=== PATIENT | female | born 1980 | race African-American/Black ===

== ENCOUNTER 2016-10-20 16:34 | Emergency (ER) | payer MEDICARE, OTHER ==
[~2016-10-20] VITALS: Ht 175.3 cm; Wt 81.8 kg
[~2016-10-20 16:34] MED LIST: ACET-784 PO; DSS100 PO; FERR-72 PO; IBUP-2070 PO; PREN1TAB80 PO
[2016-10-20] MEDS ORDERED: HYDROCODONE/ACETAMINOPHEN 10-325 MG TABLET PO ONE (19:45)
[2016-10-20] MEDS ORDERED: IBUPROFEN 800 MG TABLET PO ONE (19:45)
[2016-10-20] MEDS ORDERED: MORPHINE SULFATE 4 MG/ML SYRINGE IVP ONE (20:00)
[2016-10-20] MEDS ORDERED: MetroNIDAZOLE 500 MG/NACL 100 ML IV ONE (20:00)
[2016-10-20] MEDS ORDERED: ONDANSETRON HCL 4 MG/2 ML VIAL IVP ONE (20:00)
[2016-10-20] MEDS ORDERED: KETOROLAC TROMETHAMINE 30 MG/ML VIAL IVP ONE (20:00)
[2016-10-20 20:57] VITALS: BP 127/75
== END 2016-10-20 21:01 | disposition home or self-care (01) ==
LOC: EMS 16:35
DX: K04.7 Periapical abscess without sinus (principal)
CPT/HCPCS: 96365; 96372; 96375; 99284; J0690; J1885; J2270; J2405; J3490

== ENCOUNTER 2017-01-30 11:29 | Emergency (ER) | payer MEDICARE, OTHER ==
[~2017-01-30] VITALS: Ht 175.3 cm; Wt 81.8 kg
[2017-01-30] MEDS ORDERED: ONDANSETRON HCL 4 MG/2 ML VIAL IVP ONE (12:45)
[2017-01-30] MEDS ORDERED: HYDROmorphone 2 MG/ML SYRINGE IVP ONE (12:45)
[2017-01-30] MEDS ORDERED: SODIUM CHLORIDE 0.9% 1,000 ML IV ONE (12:45)
[2017-01-30 12:58] LABS: BASOPHILS % (AUTO) 0.7 % (0.0-2.0); EOSINOPHILS % (AUTO) 1.9 % (1.0-6.0); HEMATOCRIT 31.7 % (36-46); HEMOGLOBIN 10.5 g/dL (12.0-16.0); LYMPHOCYTES # (AUTO) 1.9 K/uL (1.0-4.8); LYMPHOCYTES % (AUTO) 34.9 % (22.0-44.0); MEAN CORPUSCULAR HGB CONC 33.3 G/dL (31.0-37.0); MEAN CORPUSCULAR VOLUME 90 fL (80-100); MONOCYTES # (AUTO) 0.4 K/uL (0.1-1.0); NEUTROPHILS % (AUTO) 55.5 % (40.0-70.0); PLATELET COUNT (AUTO) 191 K/uL (150-450); RED BLOOD CELL COUNT(AUTO) 3.52 MIL/uL (4.00-5.20); RED CELL DISTRIBUTION WIDTH 13.4 % (11.5-14.5); WHITE BLOOD COUNT (AUTO) 5.4 K/uL (4.5-11.0)
[2017-01-30] MEDS ORDERED: CeFAZolin 1 GM/DEXTROSE 50 ML IV ONE (13:00)
[2017-01-30 13:28] LABS: ANION GAP 7 mmol/L (8-16); CALCIUM, TOTAL 8.5 mg/dL (8.8-10.5); CARBON DIOXIDE 30 mmol/L (22-29); CHLORIDE 107 mmol/L (98-107); CREATININE 0.72 mg/dL (0.60-1.30); GLOMERULAR FILTR. RATE CALC > 60 mL/min (>60); POTASSIUM 3.5 mmol/L (3.5-5.1); SODIUM SERUM 144 mmol/L (136-145); UREA NITROGEN, BLOOD 9 mg/dL (7-18)
[2017-01-30 14:42] VITALS: BP 111/69
== END 2017-01-30 14:47 | disposition home or self-care (01) ==
LOC: EMS 11:31
DX: R68.84 Jaw pain (principal); Z76.0 Encounter for issue of repeat prescription
CPT/HCPCS: 36415; 80048; 85025; 96365; 96375; 99284; J0690; J1170; J2405; J7030

== ENCOUNTER 2020-09-25 13:14 | Inpatient (IN) | payer MEDICARE, MEDICAID ==
[~2020-09-25] VITALS: Ht 175.3 cm; Wt 90.7 kg
[2020-09-25 14:30] LABS: BASOPHILS % (AUTO) 0.3 % (0.0-2.0); EOSINOPHILS % (AUTO) 0.1 % (1.0-6.0); HEMOGLOBIN 11.1 g/dL (12.0-16.0); LYMPHOCYTES % (AUTO) 16.9 % (22.0-44.0); MEAN CORPUSCULAR HEMOGLOBIN 30.5 pg (26.0-34.0); MEAN CORPUSCULAR HGB CONC 32.7 G/dL (31.0-37.0); MEAN CORPUSCULAR VOLUME 93 fL (80-100); MONOCYTES # (AUTO) 0.4 K/uL (0.1-1.0); MONOCYTES % (AUTO) 6.2 % (2.0-9.0); NEUTROPHILS # (AUTO) 4.3 K/uL (1.8-7.7); NEUTROPHILS % (AUTO) 76.5 % (40.0-70.0); PLATELET COUNT (AUTO) 284 K/uL (150-450); RED BLOOD CELL COUNT(AUTO) 3.64 MIL/uL (4.00-5.20); RED CELL DISTRIBUTION WIDTH 13.5 % (11.5-14.5)
[2020-09-25 14:38] LABS: ANION GAP 11 mmol/L (8-16); CALCIUM, TOTAL 9.3 mg/dL (8.8-10.5); CARBON DIOXIDE 29 mmol/L (22-29); CHLORIDE 102 mmol/L (98-107); CREATININE 0.68 mg/dL (0.60-1.30); GLOMERULAR FILTR. RATE CALC > 60 mL/min (>60); GLUCOSE,RANDOM 111 mg/dL (70-110); POTASSIUM 3.2 mmol/L (3.5-5.1); SODIUM SERUM 142 mmol/L (136-145); UREA NITROGEN, BLOOD 5 mg/dL (7-18)
[2020-09-25 14:46] LABS: ACETAMINOPHEN 18 mcg/mL (10-30); ALANINE AMINOTRANSFERASE 40 U/L (12-78); ALBUMIN 3.7 g/dL (3.4-5.0); ALKALINE PHOSPHATASE 75 U/L (46-116); ASPARTATE AMINOTRANSFERASE 17 U/L (15-37); BILIRUBIN,TOTAL 0.1 mg/dL (0.1-1.0); TOTAL PROTEIN, SERUM 7.6 g/dL (6.4-8.2)
[2020-09-25 15:16] LABS: SALICYLATE 2.4 mg/dL (2.8-20.0)
[2020-09-25] MEDS ORDERED: LORazepam 1 MG TABLET PO ONE (15:30)
[2020-09-25] MEDS ORDERED: POTASSIUM CHLORIDE 20 MEQ ER TABLET PO ONE (15:30)
[2020-09-25 15:36] LABS: COVID AG,FIA SOURCE NASOPHARYNGEAL
[2020-09-25 17:24] LABS: AMPHET/METH SCREEN,URINE NEGATIVE (NEGATIVE); BARBITURATE SCREEN, URINE NEGATIVE (NEGATIVE); BENZODIAZEPINES SCREEN,URINE NEGATIVE (NEGATIVE); CANNABINOID SCREEN,URINE NEGATIVE (NEGATIVE); COCAINE SCREEN,URINE NEGATIVE (NEGATIVE); METHADONE SCREEN, URINE POSITIVE (NEGATIVE); OPIATE SCREEN,URINE POSITIVE (NEGATIVE)
[2020-09-25 17:25] LABS: PHENCYCLIDINE SCREEN,URINE NEGATIVE (NEGATIVE)
[2020-09-25 17:35] VITALS: BP 142/80
[2020-09-25] MEDS ORDERED: HALOPERIDOL 5 MG TABLET PO PRN (18:00)
[2020-09-25] MEDS: ZOLPIDEM TARTRATE 10 MG TABLET PO PRN (22:18)
[2020-09-26 04:00] VITALS: BP 142/98
[2020-09-26] MEDS: LORazepam 2 MG TABLET PO PRN ×3 (04:02→16:47)
[2020-09-26] MEDS ORDERED: GuaiFENesin/D-METHORPHAN [SUGAR-FREE] 200-20MG/10 ML SYRUP UDCUP PO PRN (08:45)
[2020-09-26] MEDS ORDERED: NICOTINE 14 MG/24 HOUR PATCH TD PRN (08:45)
[2020-09-26] MEDS ORDERED: CloNIDine HCL 0.1 MG TABLET PO PRN (08:45)
[2020-09-26] MEDS ORDERED: DOCUSATE SODIUM 100 MG CAPSULE PO PRN (08:45)
[2020-09-26] MEDS ORDERED: PETROLATUM,WHITE 28 GM JELLY TP PRN (08:45)
[2020-09-26] MEDS ORDERED: MAGNESIUM HYDROXIDE SUSPENSION 30 ML UDCUP PO PRN (08:45)
[2020-09-26] MEDS ORDERED: ONDANSETRON HCL 4 MG TABLET PO PRN (08:45)
[2020-09-26] MEDS ORDERED: MAG HYDROX/AL HYDROX/SIMETH ES 30 ML SUSPENSION UDCUP PO PRN (08:45)
[2020-09-26] MEDS ORDERED: ALBUTEROL SULFATE HFA 90 MCG/PUFF 8 GM INHALER IH PRN (08:45)
[2020-09-26 08:46] VITALS: BP 163/79
[2020-09-26 09:33] VITALS: BP 150/77
[2020-09-26] MEDS: NICOTINE 14 MG/24 HOUR PATCH TD SCH (09:33)
[2020-09-26] MEDS: IBUPROFEN 400 MG TABLET PO PRN ×2 (09:33→19:47)
[2020-09-26] MEDS: SERTRALINE HCL 50 MG TABLET PO SCH (16:47)
[2020-09-26] MEDS: BusPIRone HCL 5 MG TABLET PO SCH ×2 (16:48→20:13)
[2020-09-26] MEDS: LOPERAMIDE HCL 2 MG CAPSULE PO PRN (17:39)
[2020-09-26] MEDS: ACETAMINOPHEN 325 MG TABLET PO PRN (17:41)
[2020-09-26 17:45] VITALS: BP 131/73
[2020-09-26 17:51] VITALS: BP 131/73
[2020-09-26] MEDS: ZOLPIDEM TARTRATE 10 MG TABLET PO PRN (20:13)
[2020-09-26] MEDS ORDERED: TraMADol HCL 50 MG TABLET PO PRN (20:15)
[2020-09-27 01:30] VITALS: BP 126/84
[2020-09-27] MEDS: LORazepam 2 MG TABLET PO PRN ×2 (01:33→09:23)
[2020-09-27] MEDS: ACETAMINOPHEN 325 MG TABLET PO PRN (06:28)
[2020-09-27] MEDS: LOPERAMIDE HCL 2 MG CAPSULE PO PRN (06:28)
[2020-09-27 08:42] VITALS: BP 130/100
[2020-09-27] MEDS ORDERED: AmLODIPine BESYLATE 2.5 MG TABLET PO SCH (09:00)
[2020-09-27] MEDS: NICOTINE 14 MG/24 HOUR PATCH TD SCH (09:22)
[2020-09-27] MEDS: BusPIRone HCL 5 MG TABLET PO SCH (09:22)
[2020-09-27] MEDS: SERTRALINE HCL 50 MG TABLET PO SCH (09:22)
[2020-09-27] MEDS ORDERED: BUSP5TAB20 PO (10:53)
[2020-09-27] MEDS ORDERED: AMLO2.5T96 PO (10:53)
[2020-09-27] MEDS ORDERED: SERT-158 PO (10:53)
== END 2020-09-27 11:45 | disposition home or self-care (01) | DRG 885 ==
LOC: EMS 13:27 → 3EI 16:42 → 3EX 17:15
DX: F33.2 Major depressive disorder, recurrent severe without psychotic features (principal); R45.851 Suicidal ideations; G89.4 Chronic pain syndrome; E87.6 Hypokalemia; D64.9 Anemia, unspecified; Z20.822 Contact with and (suspected) exposure to COVID-19; F43.21 Adjustment disorder with depressed mood; F41.0 Panic disorder [episodic paroxysmal anxiety]; Z59.0 Homelessness
CPT/HCPCS: 87426; 99285; G0378; G0480; G0481